=== PATIENT | male | born 1995 | race African-American/Black ===

== ENCOUNTER 2019-01-09 14:28 | Emergency (ER) | payer MEDICAID ==
[~2019-01-09] VITALS: Ht 172.7 cm; Wt 79.4 kg
--- NOTE | 2019-01-09 14:38 | NUR ---
ED Nurse Note: Patient walked into ED c/o auditory hallucinations, patient states that "i hear voices telling em that they are going to sacrifice me", at this time patient does not have a plan to hurt himself, but states that he does have a history of cutting himself. patient's ideas are intact, has a flat affect, denies any pain. patient is alert and oriented x4, ambulatory with a steady gait, VSS. patient's belongings are put on locker #1
[2019-01-09 14:42] VITALS: BP 136/86
--- NOTE | 2019-01-09 15:00 | NUR ---
ED Nurse Note: placed IV on patients left AC 20 gauge, blood sent down, no urine yet
[2019-01-09 15:18] LABS: BASOPHILS % (AUTO) 1.3 % (0.0-2.0); EOSINOPHILS % (AUTO) 0.9 % (0.0-3.0); HEMATOCRIT 41.6 % (42.0-52.0); HEMOGLOBIN 14.1 G/DL (14.2-18.0); LYMPHOCYTES % (AUTO) 24.6 % (20.0-45.0); MEAN CORPUSCULAR VOLUME 82 FL (80-99); MONOCYTES % (AUTO) 8.6 % (1.0-10.0); NEUTROPHILS % (AUTO) 64.6 % (45.0-75.0); PLATELET COUNT 229 K/UL (150-450); RED BLOOD COUNT 5.07 M/UL (4.70-6.10); RED CELL DISTRIBUTION WIDTH 11.6 % (11.6-14.8); WHITE BLOOD COUNT 5.4 K/UL (4.8-10.8)
[2019-01-09 15:30] LABS: ANION GAP 9 mmol/L (5-15); BLOOD UREA NITROGEN 9 mg/dL (7-18); CALCIUM 9.2 MG/DL (8.5-10.1); CARBON DIOXIDE 28 MMOL/L (21-32); CHLORIDE 104 MMOL/L (98-107); CREATININE 1.2 MG/DL (0.55-1.30); SODIUM 141 MMOL/L (136-145)
[2019-01-09 15:35] LABS: ALANINE AMINOTRANSFERASE 90 U/L (12-78); ALBUMIN 3.8 G/DL (3.4-5.0); ALKALINE PHOSPHATASE 82 U/L (46-116); ASPARTATE AMINO TRANSFERASE 30 U/L (15-37); BILIRUBIN,TOTAL 0.9 MG/DL (0.2-1.0)
--- NOTE | 2019-01-09 15:58 | Emergency Room Report ---
History of Present Illness General Chief Complaint: Suicidal Source: Patient (Lien Kumar) Present Illness HPI 23-year-old male presents to the emergency department complaining of persistent auditory hallucinations times several days. Patient reports history of auditory hallucinations that began when he is 21 years of age. Patient states that he had multiple trials of psychiatric medications none of which have relieved his symptoms. Patient states that he is hearing voices that are encouraging him to hurt himself he states that he does not have a specific plan to hurt himself at the moment as "the voices keep telling him different ways to hurt himself". Pt. reports one PSA earlier this year by attempted OD. Patient denies HI. He denies illicit drug use, alcohol use states that he is not currently taking any medications. Denies history of TBI, heart or liver conditions. Also reports history of bi-polar, depression and anxiety for which she states also runs in his family. Denies pain at this time. He denies any modifying factors of his symptoms. Denies CP, SOB, Palpitations, Fevers, chills or MENON. (Lien Kumar) Allergies: Coded Allergies: No Known Allergies (Unverified , 01/09/19) Patient History Past Medical History: see triage record, psych hx Past Surgical History: none Pertinent Family History: none Reviewed Nursing Documentation: PMH: Agreed; PSxH: Agreed (Lien Kumar) Nursing Documentation-PMH Past Medical History: No History, Except For Hx Asthma: Yes History Of Psychiatric Problem: Yes - Schizophrenia (Lien Kumar) Review of Systems All Other Systems: negative except mentioned in HPI (Lien Kumar) Physical Exam Vital Signs Date Time Temp Pulse Resp B/P (MAP) Pulse Ox O2 Delivery O2 Flow Rate FiO2 01/09/19 14:32 99.5 88 19 136/86 98 Room Air Sp02 EP Interpretation: reviewed, normal General Appearance: no apparent distress, alert, GCS 15, non-toxic Head: normocephalic, atraumatic Eyes: bilateral eye normal inspection, bilateral eye PERRL ENT: hearing grossly normal, normal voice Neck: full range of motion Respiratory: chest non-tender, lungs clear, normal breath sounds, speaking full sentences Cardiovascular #1: regular rate, rhythm Gastrointestinal: normal bowel sounds, non tender, soft Musculoskeletal: back normal, gait/station normal, normal range of motion, non- tender Neurologic: alert, oriented x3, responsive, motor strength/tone normal, sensory intact, speech normal, grossly normal Psychiatric: judgement/insight normal Skin: normal color, no rash, warm/dry, well hydrated Lymphatic: no adenopathy (Lien Kumar) Medical Decision Making PA Attestation Dr. Colón is my supervising Physician whom patient management has been discussed with. (Lien Kumar) Diagnostic Impression: Primary Impression: Auditory hallucinations Additional Impression: Bipolar affective psychosis Qualified Codes: F31.64 - Bipolar disorder, current episode mixed, severe, with psychotic features ER Course 23-year-old male presents to the emergency department complaining of persistent auditory hallucinations times several days. Patient reports history of auditory hallucinations that began when he is 21 years of age. Patient states that he had multiple trials of psychiatric medications none of which have relieved his symptoms. Patient states that he is hearing voices that are encouraging him to hurt himself he states that he does not have a specific plan to hurt himself at the moment as "the voices keep telling him different ways to hurt himself". Pt. reports one PSA earlier this year by attempted OD. Patient denies HI. He denies illicit drug use, alcohol use states that he is not currently taking any medications. Denies history of TBI, heart or liver conditions. Also reports history of bi-polar, depression and anxiety for which she states also runs in his family. Denies pain at this time. He denies any modifying factors of his symptoms. Denies CP, SOB, Palpitations, Fevers, chills or MENON. Pt has flat affect. non-aggressive, normal though process, and normal memory. Ddx considered but are not limited to OD, SI/HI, psychosis, UTI, intoxication Vital signs: are WNL, pt. is afebrile H&PE are most consistent with behavioral/mental health issue ORDERS: -CBC, CMP: Unremarkable -UA: negative for infection/ unremarkable see results attached. -UDS: Negative -Salicylates and Acetaminophen -WNL -Serum ETOH - No evidence of acute intoxication ED INTERVENTIONS: - None required at this time . DISPOSITION: patient is medically cleared and will be under ED observation awaiting psychiatric evaluation for final disposition. (Lien Kumar) ER Course Pt s/o to me. He was seen by PET and was placed on a 5150. He is medically cleared. Pending psych transfer. (Dev Staley MD) Last Vital Signs Date Time Temp Pulse Resp B/P (MAP) Pulse Ox O2 Delivery O2 Flow Rate FiO2 01/09/19 14:42 99.5 86 19 136/86 98 Room Air (Lien Kumar) Status: improved (Dev Staley MD) Disposition: XFER TO PSYCH HOSP/UNIT Condition: Stable Scripts Unable to Obtain Active Prescriptions or Reported Meds Referrals: NOT CHOSEN IPA/,REFERRING (PCP) Lien Kumar Jan 09, 2019 15:58 Dev Staley MD Jan 10, 2019 06:02
[2019-01-09 17:04] VITALS: BP 128/82
--- NOTE | 2019-01-09 17:05 | NUR ---
ED Nurse Note: Patient has ambulated to bathroom, patient is relaxed.
--- NOTE | 2019-01-09 19:26 | NUR ---
HAND-OFF: Report given to CHRISTINE Epstein.
[2019-01-09 19:30] VITALS: BP 126/81
--- NOTE | 2019-01-09 23:09 | NUR ---
ED Nurse Note: Pt had psychatric evaluation at bed side.
[2019-01-10 00:15] VITALS: BP 123/81
[2019-01-10 03:35] VITALS: BP 125/80
--- NOTE | 2019-01-10 03:44 | NUR ---
ED Nurse Note: PT IS A/O X4, WAITING FOR BED FOR TRANSFER.
[2019-01-10 07:25] VITALS: BP 122/82
--- NOTE | 2019-01-10 07:27 | NUR ---
HAND-OFF: Report given to Brittany/RN for continue care. Pt is A/O X 4. VSS.1:1 sitter at bedside. Waiting for transfer.
--- NOTE | 2019-01-10 07:28 | NUR ---
ED Nurse Note: Received report from CHRISTINE Epstein. Pt asleep comfortably in bed, received breakfast tray, sitter at the bedside. Waiting for placement.
[2019-01-10 09:34] VITALS: BP 121/83
--- NOTE | 2019-01-10 09:58 | NUR ---
ED Nurse Note: Pt asleep in bed comofortably. No complaints of pain or acute distress noted. Food, water, and bathrrom offered to pt.
--- NOTE | 2019-01-10 11:10 | NUR ---
ED Nurse Note: CLINICALS RE-FAXED TO [facility]. [facility] CALLED TO CONFIRM THEY RECEIVED FAX. FAX RECEIPT CONFIRMED. CLINICALS UNDER REVIEW BY NURSING ASSISTANT MAINTENANCE MANAGER.
--- NOTE | 2019-01-10 11:46 | NUR ---
ED Nurse Note: Gave report to CHRISTINE Leon from [facility]. Waiting for transport arrival.
[2019-01-10 11:47] VITALS: BP 120/85
--- NOTE | 2019-01-10 13:00 | NUR ---
ED Nurse Note: Gave verbal report to [facility].
[2019-01-10 13:11] VITALS: BP 122/87
--- NOTE | 2019-01-10 13:12 | NUR ---
ED Nurse Note: Pt transferred to [facility] via [facility]. No acute distress noted. Left ER w/ all belongings.
== END 2019-01-10 13:13 ==
LOC: EMR 15:01
DX: R44.0 Auditory hallucinations (principal); F31.64 Bipolar disorder, current episode mixed, severe, with psychotic features; F20.9 Schizophrenia, unspecified
CPT/HCPCS: 36415; 80053; 80307; 80329; 85025; 99285

== ENCOUNTER 2020-08-30 14:55 | Emergency (ER) | payer MEDICAID, OTHER ==
[~2020-08-30] VITALS: Ht 172.7 cm; Wt 102.5 kg
--- NOTE | 2020-08-30 15:11 | NUR ---
ED Nurse Note: Pt ambulated to ed from home due chest tightness for 2 days. pt appears short of breath when speaking. pt reports he just got out of [facility], after testing positive for covid on 07/23/2020.
[2020-08-30 15:12] VITALS: BP 124/87
--- NOTE | 2020-08-30 15:20 | NUR ---
ED Nurse Note: xray at bedside
[2020-08-30] MEDS ORDERED: Omnipaque 350 100ml vial INJ PRN (15:30)
--- NOTE | 2020-08-30 15:45 | Diagnostic Imaging Report ---
EXAM: XR Chest, 1 View CLINICAL HISTORY: PAIN TECHNIQUE: Frontal view of the chest. COMPARISON: None FINDINGS: Hardware: None. Lungs/pleura: Normal. No focal consolidation. No pleural effusion or pneumothorax. Heart/mediastinum: Normal. No cardiomegaly. Soft tissues: Unremarkable. Bones: No acute fracture. Upper abdomen: Normal. IMPRESSION: No acute disease identified.
[2020-08-30 15:52] LABS: BASOPHILS % (AUTO) 1.2 % (0.0-2.0); EOSINOPHILS % (AUTO) 0.4 % (0.0-3.0); HEMATOCRIT 41.4 % (42.0-52.0); LYMPHOCYTES % (AUTO) 19.8 % (20.0-45.0); MEAN CORPUSCULAR VOLUME 83 FL (80-99); MONOCYTES % (AUTO) 5.4 % (1.0-10.0); NEUTROPHILS % (AUTO) 73.2 % (45.0-75.0); PLATELET COUNT 242 K/UL (150-450); RED BLOOD COUNT 4.97 M/UL (4.70-6.10); RED CELL DISTRIBUTION WIDTH 12.8 % (11.6-14.8); WHITE BLOOD COUNT 7.7 K/UL (4.8-10.8)
--- NOTE | 2020-08-30 16:02 | NUR ---
ED Nurse Note: Urine sample sent to lab
--- NOTE | 2020-08-30 16:12 | Emergency Room Report ---
History of Present Illness General Chief Complaint: Chest Pain Source: Patient Present Illness HPI 25-year-old male presents to the emergency department complaining of persistent 3 out of 10 severity midsternal discomfort that he describes as "tightness, as if he is about to have an asthma attack but never actually has one". X6 days. Patient reports the severity of his symptoms have progressed over the course of 6 days he reports yesterday his discomfort was the worst and rates it as 6 out of 10 in severity. He denies cough, fevers, chills, wheezing. Patient reports this is not like his typical asthma attacks. Patient does report that 1 month ago he tested positive for COVID-19. He reiterates that he never had any symptoms. Only significant past medical history is asthma. Familial history of high blood pressure and strokes. He denies cardiac history. Patient denies shortness of breath with exertion. He denies sputum production. He denies swelling of the lower extremities. He denies trauma or fall. Denies hx of GERD. Allergies: Coded Allergies: No Known Allergies (Unverified , 01/09/19) COVID-19 Screening Contact w/high risk pt: No Experienced COVID-19 symptoms?: No COVID-19 Testing performed REAL ESTATE OFFICER: No Patient History Past Medical History: see triage record Past Surgical History: none Pertinent Family History: none Reviewed Nursing Documentation: PMH: Agreed; PSxH: Agreed Nursing Documentation-PMH Hx Asthma: Yes Review of Systems All Other Systems: negative except mentioned in HPI Physical Exam Vital Signs Date Time Temp Pulse Resp B/P (MAP) Pulse Ox O2 Delivery O2 Flow Rate FiO2 08/30/20 15:00 98.2 89 15 124/87 (99) 95 Room Air Sp02 EP Interpretation: reviewed, normal General Appearance: well appearing, no apparent distress, alert, GCS 15, non- toxic Head: normocephalic, atraumatic Eyes: bilateral eye normal inspection, bilateral eye PERRL ENT: hearing grossly normal, normal voice Neck: full range of motion Respiratory: chest non-tender, lungs clear, normal breath sounds, no respiratory distress, no accessory muscle use, no wheezing, speaking full sentences Cardiovascular #1: regular rate, rhythm, no edema, normal capillary refill Gastrointestinal: non tender Musculoskeletal: normal range of motion, gait/station normal, non-tender Neurologic: alert, motor strength/tone normal, oriented x3, sensory intact, responsive, speech normal Psychiatric: judgement/insight normal Skin: no rash, normal color Medical Decision Making PA Attestation Dr. Herbert is my supervising Physician whom patient management has been discussed with. Diagnostic Impression: Primary Impression: Acute nonspecific chest pain with low risk of coronary artery disease Additional Impressions: History of asthma Abnormal finding on EKG ER Course 25-year-old male presents to the emergency department complaining of persistent 3 out of 10 severity midsternal discomfort that he describes as "tightness, as if he is about to have an asthma attack but never actually has one". X6 days. Patient reports the severity of his symptoms have progressed over the course of 6 days he reports yesterday his discomfort was the worst and rates it as 6 out of 10 in severity. He denies cough, fevers, chills, wheezing. Patient reports this is not like his typical asthma attacks. Patient does report that 1 month ago he tested positive for COVID-19. He reiterates that he never had any s ymptoms. Only significant past medical history is asthma. Familial history of high blood pressure and strokes. He denies cardiac history. Patient denies shortness of breath with exertion. He denies sputum production. He denies swelling of the lower extremities. He denies trauma or fall. Denies hx of GERD. Ddx considered but are not limited to AK, pneumonia, contusion, costochondritis, PE, ACS, Shoulder strain, Chest wall contusion. aortic dissection. Vital signs: are WNL, pt. is afebrile H&PE are most consistent with suspicion for PE given recent COVID infection and description of symptoms. Pt. without any cardiac RF's. Patient is not in any respiratory distress. He is in no acute distress at the moment he is sitting comfortably on the ED gurney. Patient is nontoxic in appearance. He is alert and oriented. ORDERS: - EK NSR with T-wave inversions in leads 2,3 and AvF -CBC Unremarkable -D-Dimer: WNL -CMP: WNL -Troponin: WNL 0.002 -PT/PTT: WNL -UDS: all negative CXR: WNL -CTA Chest: NO PE ED INTERVENTIONS: -Mylanta PO -Pepcid IV - Ativan IV -Toradol IV Pt. appears to have anxiousness regarding his health after being told there is an abnormal ekg finding. Assured pt. several times that our goal today was to make sure he is not having an emergency, which we did not find. Pt. asked staff multiple times about his labs once he was given a copy of his results. DISCHARGE: At this time pt. is stable for d/c to home. Will provide printed patient care instructions, and any necessary prescriptions. Care plan and follow up instructions have been discussed with the patient prior to discharge. Pt. is given copies of all imaging, labs, and EKG. reviewed results with pt. and pt. is aware of EKG abnormality which he is to follow up with Cardiology regarding. Pt. is given ED return precautions if he experiences worsening of his current symptoms, or if he develops and NEW symptoms regardless of what they might be. Labs Test 08/30/20 15:17 08/30/20 16:00 White Blood Count 7.7 K/UL (4.8-10.8) Red Blood Count 4.97 M/UL (4.70-6.10) Hemoglobin 14.0 G/DL (14.2-18.0) Hematocrit 41.4 % (42.0-52.0) Mean Corpuscular Volume 83 FL (80-99) Mean Corpuscular Hemoglobin 28.1 PG (27.0-31.0) Mean Corpuscular Hemoglobin Concent 33.7 G/DL (32.0-36.0) Red Cell Distribution Width 12.8 % (11.6-14.8) Platelet Count 242 K/UL (150-450) Mean Platelet Volume 7.4 FL (6.5-10.1) Neutrophils (%) (Auto) 73.2 % (45.0-75.0) Lymphocytes (%) (Auto) 19.8 % (20.0-45.0) Monocytes (%) (Auto) 5.4 % (1.0-10.0) Eosinophils (%) (Auto) 0.4 % (0.0-3.0) Basophils (%) (Auto) 1.2 % (0.0-2.0) Prothrombin Time 11.4 SEC (9.30-11.50) Prothromb Time International Ratio 1.0 (0.9-1.1) Activated Partial Thromboplast Time 28 SEC (23-33) D-Dimer < 0.19 mg/L FEU Sodium Level 138 MMOL/L (136-145) Potassium Level 4.1 MMOL/L (3.5-5.1) Chloride Level 103 MMOL/L (98-107) Carbon Dioxide Level 26 MMOL/L (21-32) Anion Gap 9 mmol/L (5-15) Blood Urea Nitrogen 10 mg/dL (7-18) Creatinine 1.2 MG/DL (0.55-1.30) Estimat Glomerular Filtration Rate > 60 mL/min (>60) Glucose Level 85 MG/DL (74-106) Calcium Level 9.0 MG/DL (8.5-10.1) Total Bilirubin 0.6 MG/DL (0.2-1.0) Aspartate Amino Transf (AST/SGOT) 21 U/L (15-37) Alanine Aminotransferase (ALT/SGPT) 29 U/L (12-78) Alkaline Phosphatase 66 U/L (46-116) Troponin I 0.002 ng/mL (0.000-0.056) Total Protein 7.8 G/DL (6.4-8.2) Albumin 3.9 G/DL (3.4-5.0) Globulin 3.9 g/dL Albumin/Globulin Ratio 1.0 (1.0-2.7) Lipase 148 U/L (73-393) Urine Opiates Screen Negative (NEGATIVE) Urine Barbiturates Screen Negative (NEGATIVE) Phencyclidine (PCP) Screen Negative (NEGATIVE) Urine Amphetamines Screen Negative (NEGATIVE) Urine Benzodiazepines Screen Negative (NEGATIVE) Urine Cocaine Screen Negative (NEGATIVE) Urine Marijuana (THC) Screen Negative (NEGATIVE) EKG Diagnostic Results Troponin ordered: Yes When was troponin ordered?: Aug 30, 2020 EKG Time: 15:08 Rate: normal - 84 Rhythm: NSR ST Segments: no acute changes Other Impression Inverted T waves in leads II, III, aVR and aVF ASA given to the pt in ED: No PA Scribe Text This Interpretation was scribed by BERT Kumar. Chest X-Ray Diagnostic Results Chest X-Ray Diagnostic Results : Chest X-Ray Ordered: Yes # of Views/Limited/Complete: 1 View Indication: Chest Pain EP Interpretation: Yes BERT Xray: Interpretation reviewed, by supervising MD, and agrees with findings. Interpretation: no consolidation, no effusion, no pneumothorax, no acute cardiopulmonary disease Impression: No acute disease Electronically Signed by: Lien Kumar PA-C CT/MRI/US Diagnostic Results CT/MRI/US Diagnostic Results : Imaging Test Ordered: CTA chest w. contrast Impression " 1. No pulmonary embolus identified. 2. No aortic aneurysm or dissection. 3. No acute pulmonary parenchymal abnormality identified." --Per official radiology report- Please see report for specific details. Last Vital Signs Date Time Temp Pulse Resp B/P (MAP) Pulse Ox O2 Delivery O2 Flow Rate FiO2 08/30/20 15:12 98.2 89 15 124/87 95 Room Air Status: improved Disposition: HOME, SELF-CARE Condition: Stable Scripts Albuterol Sulfate* (Albuterol Sulfate Hfa*) 8.5 Gm Hfa.aer.ad 2 PUFF INH Q6H, #1 INH 2 Refills Prov: Lien Kumar 08/30/20 Famotidine* (Pepcid 20mg tablet*) 20 Mg Tablet 20 MG ORAL TWICE A DAY for Gerd for 7 Days, #14 TAB 0 Refills Prov: Lien Kumar 08/30/20 Aspirin* (ASPIRIN*) 81 Mg Tab.chew 81 MG ORAL DAILY for Antiplatelet for 14 Days, #30 TAB Prov: Lien Kumar 08/30/20 Referrals: [facility] Patient Instructions: Nonspecific Chest Pain, Heartburn Additional Instructions: ----- You do not have a pulmonary embolism/blood clot at this time. You lab work does not suggest a heart attack or emergent heart condition. Your blood work and xray do not suggest infection at this time. Take ALL medications as directed. Follow up with a Primary Care Provider in 3-5 days, even if your symptoms have resolved. HEADING AND PRIMING TOOL SETTER Evaluation for your abnormal EKG within 3- 5 days Copy of EKG is provided for you to take with you for comparison. --Please review list of primary care clinics, if you do not already have a primary care provider Return immediately to the ED if new symptoms occur, or current symptoms become worse. - Please note that this Emergency Department Report was dictated using [employer] technology software, occasionally this can lead to erroneous entry secondary to interpretation by the dictation equipment. Lien Kumar Aug 30, 2020 16:12
[2020-08-30 16:24] LABS: ANION GAP 9 mmol/L (5-15); BLOOD UREA NITROGEN 10 mg/dL (7-18); CARBON DIOXIDE 26 MMOL/L (21-32); CHLORIDE 103 MMOL/L (98-107); CREATININE 1.2 MG/DL (0.55-1.30); POTASSIUM 4.1 MMOL/L (3.5-5.1); SODIUM 138 MMOL/L (136-145)
[2020-08-30 16:28] LABS: ALANINE AMINOTRANSFERASE 29 U/L (12-78); ALBUMIN 3.9 G/DL (3.4-5.0); ALKALINE PHOSPHATASE 66 U/L (46-116); ASPARTATE AMINO TRANSFERASE 21 U/L (15-37); BILIRUBIN,TOTAL 0.6 MG/DL (0.2-1.0)
--- NOTE | 2020-08-30 16:53 | NUR ---
Mark gaitan in EDM - 08/30/20 at 1711 by PARI ED Nurse Note: Pt brought back to room with tech due to decon of CT Scan
--- NOTE | 2020-08-30 16:56 | NUR ---
ED Nurse Note: pt taken to Ct
--- NOTE | 2020-08-30 16:58 | NUR ---
ED Nurse Note: Pt brought back to room with tech due to decon of CT Scan
[2020-08-30 17:12] VITALS: BP 125/81
--- NOTE | 2020-08-30 17:50 | NUR ---
ED Nurse Note: pt left to CT
--- NOTE | 2020-08-30 17:58 | NUR ---
ED Nurse Note: pt returned from ct
--- NOTE | 2020-08-30 18:25 | Diagnostic Imaging Report ---
EXAM: CT Angiography Chest With Intravenous Contrast CLINICAL HISTORY: PAIN TECHNIQUE: Axial computed tomographic angiography images of the chest with intravenous contrast. CTDI is 106.3 mGy and DLP is 342.1 mGy-cm. One or more of the following dose reduction techniques were used: automated exposure control, adjustment of the mA and/or kV according to patient size, use of iterative reconstruction technique. MIP reconstructed images were created and reviewed. COMPARISON: Chest radiograph on 08/30/2020 FINDINGS: Pulmonary arteries: No pulmonary embolus identified. Aorta: No aortic aneurysm or dissection. Lungs: Unremarkable. No mass. No consolidation. Pleural space: Unremarkable. No significant effusion. No pneumothorax. Heart: Unremarkable. No cardiomegaly. No significant pericardial effusion. No evidence of RV dysfunction. Bones/joints: No acute fracture. No dislocation. Soft tissues: Mild bilateral gynecomastia. Lymph nodes: Unremarkable. No enlarged lymph nodes. IMPRESSION: 1. No pulmonary embolus identified. 2. No aortic aneurysm or dissection. 3. No acute pulmonary parenchymal abnormality identified.
[2020-08-30] MEDS ORDERED: LORazepam Inj 2mg/ml 1ml IV ONE (18:45)
[2020-08-30] MEDS ORDERED: Ketorolac 30mg Inj IV ONE (18:45)
[2020-08-30] MEDS ORDERED: FAMOTIDINE20 MG ORAL (18:51)
[2020-08-30] MEDS ORDERED: ASPIRIN81 MG ORAL (18:51)
[2020-08-30] MEDS ORDERED: ALBUTEROL SULF8.5 G1 INH (18:51)
--- NOTE | 2020-08-30 18:55 | NUR ---
ED Nurse Note: Per ERPA, monitor pt after ativan adminsitration before discharge and inform PA when discharging pt.
--- NOTE | 2020-08-30 19:02 | NUR ---
ED Nurse Note: assessed pt with ER-PA, pt appears sleepy, will observe pt longer for safe discharge
--- NOTE | 2020-08-30 19:06 | NUR ---
HAND-OFF: Report given to tayo taylor.
--- NOTE | 2020-08-30 19:50 | NUR ---
Feeling much better,IV line and ID band removed, discharge instructions explainedin details,understood,left with all his belingings, alert and oriented , no pain. Advised to come back if worse, all lab results,EKG copy given to F/U with PMD.
[2020-08-30 20:04] VITALS: BP 133/86
== END 2020-08-30 19:50 | disposition home or self-care (01) ==
LOC: EMR 15:15
DX: R07.9 Chest pain, unspecified (principal); J45.909 Unspecified asthma, uncomplicated; R94.31 Abnormal electrocardiogram [ECG] [EKG]; Z86.19 Personal history of other infectious and parasitic diseases
CPT/HCPCS: 36415; 71045; 71275; 80053; 80307; 83690; 84484; 85025; 85379; 85610; 85730; 93005; 96374; 96375; J1885; Q9967; Z7502; 99284